=== PATIENT | male | born 1985 | race Two or more races ===

== ENCOUNTER 2023-07-09 16:34 | Inpatient (IN) | payer SELFPAY ==
[~2023-07-09] VITALS: Ht 180.3 cm; Wt 103.4 kg
[2023-07-09] MEDS ORDERED: NOREPINEPHRINE 8 MG/250ML KIT 250 ML IV SCH (17:25)
[2023-07-09] MEDS ORDERED: levETIRAcetam 500 mg/100ml 100 ML IV ONE (17:30)
[2023-07-09] MEDS ORDERED: LORazepam 2MG/ML-1ML VIAL IV ONE (17:30)
[2023-07-09 17:38] LABS: Eosinophils # (auto) 0.3 10 ^3/uL (0-0.8); Hemoglobin 11.1 g/dL (13.5-17.5); Red Blood Cells 3.13 10^6/uL (4.5-5.90)
[2023-07-09 17:40] LABS: Basophils # (auto) 0 10 ^3/uL (0-0.2); Basophils % (auto) 0.3 % (0.0-2.0); Eosinophils % (auto) 1.7 % (0.0-7.0); Hematocrit 36.8 % (41.0-53.0); Lymphocytes # (auto) 3.1 10 ^3/uL (0.4-5.4); Lymphocytes % (auto) 18.5 % (10.0-50.0); Mean Corpuscular Hemoglobin 35.4 pg (28.0-32.0); Mean Corpuscular Hgb Conc. 30.1 g/dL (32.0-36.0); Mean Corpuscular Volume 117.6 fL (80.0-100.0); Monocytes # (auto) 0.3 10 ^3/uL (0-1.3); Neutrophils # (auto) 13.1 10 ^3/uL (1.6-8.6); Neutrophils % (auto) 77.5 % (37.0-80.0); Red Cell Distribution Width 17.6 % (11.8-14.3); White Blood Cell 16.9 10^3/uL (4.4-10.8)
[2023-07-09 17:56] LABS: INR 2.88 (0.9-1.15); Prothrombin Time 28.2 sec (9.3-11.8)
[2023-07-09] MEDS ORDERED: fentaNYL Drip 2500mCg/250mlNS 250 ML IV ONE (17:56)
[2023-07-09 17:59] LABS: Alanine Aminotransferase 51 U/L (7-40); Albumin 2.3 g/dL (3.2-4.8); Alkaline Phosphatase 36 U/L (46-116); Anion Gap 33.00001 (5-15); Aspartate Aminotransferase 305 U/L (13-40); Blood Alcohol 3.6 mg/dL (<10); Calcium 6.9 mg/dL (8.7-10.4); Chloride 79 mmol/L (98-107); Glucose 186 mg/dL (74-106); Magnesium 2.5 mg/dL (1.6-2.6); Sodium 122 mmol/L (136-145)
[2023-07-09 18:00] LABS: Bilirubin, Total 12.9 mg/dL (0.2-1.0); Total Protein 5.9 g/dL (5.7-8.2)
[2023-07-09] MEDS ORDERED: fentaNYL Drip 2500mCg/250mlNS 250 ML IV SCH (18:00)
[2023-07-09] MEDS ORDERED: DOPamine 1600MCG/ML D5W 250 ML IV ONE (18:00)
[2023-07-09 18:06] LABS: Partial Thromboplastin Time 80.8 SEC (24.5-34.5)
[2023-07-09] MEDS ORDERED: SODIUM BICARBONATE 50ML VIAL 50 ML in SOD CHL 0.45% 1,000 ML IV ONE (18:15)
[2023-07-09] MEDS ORDERED: SODIUM BICARBONATE 8.4 % INJ 50ML VIAL IV ONE ×3 (18:15→23:45)
[2023-07-09 18:48] LABS: BUN/Creatinine Ratio 13.8 (10.0-20.0)
[2023-07-09 18:55] LABS: Blood Urea Nitrogen 84 mg/dL (9-23); Carbon Dioxide < 10 mmol/L (20-30)
[2023-07-09 19:02] LABS: Macrocytosis Marked; Platelet Estimate Decreased
[2023-07-09 19:06] VITALS: BP 115/34; PULSE 120; RESP 24; O2SAT 99
[2023-07-09 19:07] LABS: Base Excess -22.4 mmol/L (-2.0-2.0)
[2023-07-09 19:14] VITALS: BP 115/34; PULSE 121; RESP 24; O2SAT 99
[2023-07-09] MEDS ORDERED: FUROSEMIDE 20 MG/2 ML VIAL IV ONE (19:15)
[2023-07-09] MEDS ORDERED: SODIUM CHLORIDE 0.9% 1,000 ML IV ONE (19:15)
[2023-07-09] MEDS ORDERED: CALCIUM GLUC 1,000mg/50ml-NS 50 ML IV ONE (19:15)
[2023-07-09] MEDS ORDERED: PIPERACILLIN-TAZOB 3.375GM 100 ML IV ONE ×2 (19:15→19:55)
[2023-07-09] MEDS ORDERED: ALBUTEROL SULF 2.5 MG/0.5ML(0.5%) NEB SOLN NEB ONE (19:15)
[2023-07-09] MEDS ORDERED: ALBUTEROL SULF 2.5 MG/0.5ML(0.5%) NEB SOLN ONE (19:20)
[2023-07-09 19:41] LABS: Blood Alcohol 5.1 mg/dL (<10)
[2023-07-09 19:45] VITALS: PULSE 124; RESP 24; O2SAT 93
[2023-07-09 20:23] VITALS: BP 98/29; PULSE 119; RESP 25; O2SAT 91
[2023-07-09] MEDS ORDERED: MIDAZOLAM DRIP 50 mg/50mL 50 ML IV ONE (20:34)
[2023-07-09 20:57] LABS: Lactic Acid w/Reflex 18.9 mmol/L (0.4-2.0)
[2023-07-09 21:09] LABS: Urine Amorphous Crystal FEW /hpf (None Seen); Urine Bacteria FEW /hpf (None Seen); Urine Blood 3+ /uL (Negative); Urine Clarity CLOUDY (Clear); Urine Color Brown (Yellow); Urine Protein, UAD 2+ (Negative); Urine Specific Gravity 1.016 (1.001-1.035); Urine Sperm PRESENT /hpf (None Seen); Urine Urobilinogen Normal (Negative); Urine WBC 27 /hpf (0 - 3); Urine WBC Clumps PRESENT /hpf (None Seen)
[2023-07-09] MEDS ORDERED: PANTOPRAZOLE 40 MG/10 ML VIAL INJ IV ONE (21:15)
[2023-07-09] MEDS ORDERED: LACTULOSE 10g/15ml SOLN 473ML PR ONE (21:15)
[2023-07-09 21:27] LABS: Amphetamine Screen, Urine Neg (NEGATIVE); Barbiturate Scree,Urine Neg (NEGATIVE); Benzodiazephine Screen, Urine Neg (NEGATIVE); Cannabinoid Screen, Urine Neg (NEGATIVE); Cocaine Screen, Urine Neg (NEGATIVE); Opiate Scree,Urine Neg (NEGATIVE); Phencyclidine Screen, Urine Neg (NEGATIVE)
[2023-07-09 22:24] LABS: Salicylate < 3.0 mg/dL (2.8-20.0)
[2023-07-09 22:32] VITALS: BP 114/38; PULSE 118; RESP 24; O2SAT 92
[2023-07-09] MEDS: OCTREOTIDE ACETATE 500 MCG in SODIUM CHL 0.9% 99 ML IV SCH (22:53)
[2023-07-09 23:29] LABS: Base Excess -21.5 mmol/L (-2.0-2.0)
[2023-07-09 23:54] LABS: Hemoglobin 11.7 g/dL (13.5-17.5)
[2023-07-09 23:56] LABS: Hematocrit 39.6 % (41.0-53.0); Mean Corpuscular Hemoglobin 35.8 pg (28.0-32.0); Mean Corpuscular Hgb Conc. 29.6 g/dL (32.0-36.0); Mean Corpuscular Volume 120.8 fL (80.0-100.0); Red Blood Cells 3.28 10^6/uL (4.5-5.90); Red Cell Distribution Width 17.9 % (11.8-14.3); White Blood Cell 15.8 10^3/uL (4.4-10.8)
[2023-07-10] VITALS (24 sets, daily range): BP systolic 54–169; BP diastolic 26–140; PULSE 99–116; RESP 21–90; TEMP 98.8–99.1; O2SAT 46–88
[2023-07-10 00:09] LABS: Basophils % (manual) 0 (0.0-2.0); Blast Cells 0; Eosinophils % (manual) 0 (0-7); Metamyelocytes % 0; Myelocytes % 0; Promyelocytes % 0; Reactive Lymphocytes 0
[2023-07-10] MEDS ORDERED: VASOPRESSIN 20 UNIT/ML ONE (00:10)
[2023-07-10] MEDS ORDERED: DOPamine 1600MCG/ML D5W 0 ML IV ONE (00:11)
[2023-07-10] MEDS ORDERED: MIDAZOLAM DRIP 50 mg/50mL 50 ML IV ONE ×3 (00:11→10:20)
[2023-07-10] MEDS ORDERED: NOREPINEPHRINE 8 MG/250ML KIT 250 ML IV ONE ×3 (00:11→09:54)
[2023-07-10 00:27] LABS: Alanine Aminotransferase 140 U/L (7-40); Albumin 2.2 g/dL (3.2-4.8); Alkaline Phosphatase 60 U/L (46-116); Anion Gap 30.00001 (5-15); Bilirubin, Total 12.3 mg/dL (0.2-1.0); Calcium 6.2 mg/dL (8.7-10.4); Chloride 85 mmol/L (98-107); Glucose 124 mg/dL (74-106); Potassium 4.7 mmol/L (3.5-5.1); Sodium 125 mmol/L (136-145)
[2023-07-10 00:36] LABS: BUN/Creatinine Ratio 9.4 (10.0-20.0)
[2023-07-10 00:37] LABS: Aspartate Aminotransferase 1182 U/L (13-40); Blood Urea Nitrogen 58 mg/dL (9-23)
[2023-07-10 00:38] LABS: Carbon Dioxide < 10 mmol/L (20-30)
[2023-07-10] MEDS: PHENYLEPHRINE IV 250 ML IV SCH ×3 (00:45→10:12)
[2023-07-10] MEDS ORDERED: AZITHROMYCIN 500MG/ 250ML 250 ML IV ONE (00:45)
[2023-07-10] MEDS ORDERED: SODIUM CHLORIDE 0.9% 2,000 ML IV ONE (00:45)
[2023-07-10 01:05] LABS: Band Neutrophils % (manual) 3; Lymphocytes % (manual) 30 (10.0-50.0); Monocytes % (manual) 19 (0-12)
[2023-07-10 01:06] LABS: Platelet Estimate Decreased
[2023-07-10 01:07] LABS: Macrocytosis Marked
[2023-07-10 02:24] LABS: Lactic Acid w/Reflex 17.1 mmol/L (0.4-2.0)
[2023-07-10 02:24] LABS: Base Excess -20.2 mmol/L (-2.0-2.0)
[2023-07-10] MEDS ORDERED: SODIUM BICARBONATE 50ML VIAL 150 ML in SOD CHL 0.45% 1,000 ML IV SCH (02:45)
[2023-07-10] MEDS ORDERED: ONDANSETRON HCL 4 MG/2 ML VIAL IV PRN (02:45)
[2023-07-10] MEDS ORDERED: NITROGLYCERIN 0.4 MG SL TAB SL PRN (02:45)
[2023-07-10] MEDS ORDERED: ALBUMIN 5% 250 ML IV ONE (02:45)
[2023-07-10] MEDS ORDERED: ALBUTEROL SULF 2.5 MG/0.5ML(0.5%) NEB SOLN NEB PRN (02:45)
[2023-07-10] MEDS ORDERED: SODIUM BICARBONATE 8.4 % INJ 50ML VIAL IV ONE ×2 (02:45→03:07)
[2023-07-10] MEDS ORDERED: MORPHINE SULFATE INJ 2 MG/ml SYRG IV PRN (02:45)
[2023-07-10] MEDS ORDERED: ACETAMINOPHEN 325 MG TAB PO PRN (02:45)
[2023-07-10] MEDS: CALCIUM GLUC 1,000mg/50ml-NS 50 ML IV SCH ×2 (03:09→03:15)
[2023-07-10 03:26] LABS: Hemoglobin 10.6 g/dL (13.5-17.5)
[2023-07-10 03:28] LABS: Hematocrit 35.2 % (41.0-53.0)
[2023-07-10] MEDS ORDERED: EPINEPHrine HCL 250 ML IV SCH (03:30)
[2023-07-10 03:53] LABS: COVID19 ANTIGEN SOFIA FIA NEGATIVE (NEGATIVE)
[2023-07-10] MEDS ORDERED: DOPamine 1600MCG/ML D5W 250 ML IV ONE ×2 (04:14→07:54)
[2023-07-10] MEDS ORDERED: HETASTARCH 500 ML IV ONE (04:15)
[2023-07-10] MEDS ORDERED: CLINDAMYCIN 600MG IV 50 ML IV SCH (06:00)
[2023-07-10] MEDS ORDERED: LACTULOSE 10g/15ml SOLN 473ML PR SCH (06:00)
[2023-07-10] MEDS ORDERED: DEXTROSE 10% 1,000 ML IV SCH (06:00)
[2023-07-10] MEDS ORDERED: LACTULOSE 20Gm/30ML SOLN PO SCH (06:00)
[2023-07-10] MEDS ORDERED: ALBUMIN 25% 100 ML IV ONE ×2 (06:15→10:00)
[2023-07-10] MEDS ORDERED: DEXTROSE 50% SYRINGE 50 ML IV ONE ×2 (06:33→10:20)
[2023-07-10 06:38] LABS: Base Excess -24.4 mmol/L (-2.0-2.0)
[2023-07-10] MEDS ORDERED: DEXTROSE (50%) 50ML SYRG IV ONE (06:45)
[2023-07-10] MEDS: OCTREOTIDE ACETATE 500 MCG in SODIUM CHL 0.9% 99 ML IV SCH (07:08)
[2023-07-10] MEDS ORDERED: DOPamine 1600MCG/ML D5W 250 ML IV SCH (08:00)
[2023-07-10] MEDS ORDERED: cefTRIAXone 1GM/50ML D5W 50 ML IV SCH (09:00)
[2023-07-10] MEDS ORDERED: SODIUM BICARBONATE 50ML VIAL 150 ML in D5W 5% 1,000 ML IV SCH (09:45)
[2023-07-10] MEDS ORDERED: methylPREDNISolone SOD SUCC 40 MG/ML VL IV SCH (10:00)
[2023-07-10] MEDS ORDERED: PANTOPRAZOLE 40 MG/10 ML VIAL INJ IV ONE (10:15)
[2023-07-10] MEDS ORDERED: DEXTROSE (50%) 50ML SYRG IV PRN (10:30)
[2023-07-10] MEDS ORDERED: DOPamine 3200MCG/ML 250 ML IV SCH (10:30)
[2023-07-10] MEDS ORDERED: PHENYLEPHRINE INJ 80 MG in SODIUM CHL 0.9% 242 ML IV SCH (10:30)
[2023-07-10] MEDS ORDERED: EPINEPHrine HCL INJECTION 16 MG in D5W 5% 234 ML IV SCH (10:30)
[2023-07-10] MEDS ORDERED: NOREPINEPHRINE BITARTRATE 32 MG in SODIUM CHL 0.9% 218 ML IV SCH (10:30)
[2023-07-10] MEDS ORDERED: ACCU-CHEK COMFORT CURVE STRIP VI SCH (10:30)
[2023-07-10] MEDS ORDERED: MIDAZOLAM HCL 2MG/2ML 2ml VIAL (1mg/ml) IV PRN (10:30)
[2023-07-10] MEDS: VASOPRESSIN 20 UNITS in SODIUM CHL 0.9% 99 ML IV SCH ×3 (11:07)
[2023-07-10 11:23] LABS: Hematocrit 27.7 % (41.0-53.0); Hemoglobin 8.1 g/dL (13.5-17.5); Mean Corpuscular Hemoglobin 35.7 pg (28.0-32.0); Mean Corpuscular Hgb Conc. 29.3 g/dL (32.0-36.0); Mean Corpuscular Volume 122.1 fL (80.0-100.0); Red Blood Cells 2.27 10^6/uL (4.5-5.90); Red Cell Distribution Width 17.2 % (11.8-14.3); White Blood Cell 12.4 10^3/uL (4.4-10.8)
[2023-07-10 11:33] LABS: Basophils % (manual) 0 (0.0-2.0); Eosinophils % (manual) 0 (0-7); Promyelocytes % 0; Reactive Lymphocytes 0
[2023-07-10 11:52] LABS: Alanine Aminotransferase 455 U/L (7-40); Albumin 1.8 g/dL (3.2-4.8); Alkaline Phosphatase 49 U/L (46-116); Anion Gap 26 (5-15); BUN/Creatinine Ratio 9.2 (10.0-20.0); Blood Urea Nitrogen 55 mg/dL (9-23); Carbon Dioxide 11 mmol/L (20-30); Chloride 87 mmol/L (98-107); Glucose 190 mg/dL (74-106); Magnesium 2.8 mg/dL (1.6-2.6); Sodium 124 mmol/L (136-145)
[2023-07-10 11:53] LABS: Total Protein 4.1 g/dL (5.7-8.2)
[2023-07-10 12:03] LABS: Phosphorus 22.2 mg/dL (2.4-5.1)
[2023-07-10 12:09] LABS: Aspartate Aminotransferase > 6000 U/L (13-40)
[2023-07-10 12:11] LABS: Calcium 4.9 mg/dL (8.7-10.4); Potassium 8.1 mmol/L (3.5-5.1)
[2023-07-10 12:21] LABS: Band Neutrophils % (manual) 7; Blast Cells 2; Lymphocytes % (manual) 18 (10.0-50.0); Metamyelocytes % 14; Monocytes % (manual) 4 (0-12); Myelocytes % 4; Smudge Cells 1 /100 WBC
[2023-07-10 12:22] LABS: Macrocytosis Marked; Platelet Estimate Decreased
[2023-07-10] MEDS ORDERED: ALBUMIN 25% 100 ML IV SCH (14:00)
[2023-07-10] MEDS ORDERED: PANTOPRAZOLE 40 MG/10 ML VIAL INJ IV SCH (22:00)
== END 2023-07-10 16:35 | DRG 871 ==
LOC: EDBD 16:34 → ER 16:34 → TELE 07-10 02:53 → ICU WEST 07-10 06:20
PROVIDERS: ADMIT Internal Medicine; ATTEND Internal Medicine
PROC: 5A1935Z Respiratory Ventilation, Less than 24 Consecutive Hours (ICD-10-PCS; principal; 2023-07-10)
PROC: 0BH17EZ Insertion of Endotracheal Airway into Trachea, Via Natural or Artificial Opening (ICD-10-PCS; 2023-07-10)
DX: A41.9 Sepsis, unspecified organism (principal); G93.41 Metabolic encephalopathy; J69.0 Pneumonitis due to inhalation of food and vomit; R65.21 Severe sepsis with septic shock; J96.01 Acute respiratory failure with hypoxia; N17.0 Acute kidney failure with tubular necrosis; D68.9 Coagulation defect, unspecified; E72.20 Disorder of urea cycle metabolism, unspecified; E87.1 Hypo-osmolality and hyponatremia; E87.20 Acidosis, unspecified; G93.1 Anoxic brain damage, not elsewhere classified; N39.0 Urinary tract infection, site not specified; K81.0 Acute cholecystitis; Z20.822 Contact with and (suspected) exposure to COVID-19; E88.09 Other disorders of plasma-protein metabolism, not elsewhere classified; K70.10 Alcoholic hepatitis without ascites; K70.30 Alcoholic cirrhosis of liver without ascites; I46.9 Cardiac arrest, cause unspecified; D69.6 Thrombocytopenia, unspecified; E87.5 Hyperkalemia; F10.10 Alcohol abuse, uncomplicated; E16.2 Hypoglycemia, unspecified; E66.9 Obesity, unspecified; Z68.31 Body mass index [BMI] 31.0-31.9, adult
CPT/HCPCS: 31500; 36415; 36556; 36600; 70450; 71045; 71250; 74176; 80053; 80307; 80320; 80329; 81001; 82140; 82550; 82805; 82962; 83605; 83615; 83735; 84100; 84132; 84484; 85007; 85014; 85018; 85025; 85027; 85610; 85730; 87070; 87077; 87081; 87186; 87205; 87426; 92950; 93005; 94002; 94003; 96365; 96375; 99291; C9113; G0378; J0171; J1265; J2250; J2543; J3490; J7060; P9047